=== PATIENT | male | born 1960 | race Caucasian/White ===

== ENCOUNTER 2021-11-25 07:52 | Day surgery (SDC) | payer OTHER ==
[~2021-11-25] VITALS: Ht 180.3 cm; Wt 111.7 kg
[2021-11-25] VITALS (16 sets, daily range): BP systolic 131–175; BP diastolic 85–163
[2021-11-25] MEDS ORDERED: fentaNYL/PF 50MCG/1 ML 2ML syringe IV ONE (08:15)
[2021-11-25] MEDS ORDERED: MIDAZolam 1mg/ml 10ml vial IV ONE (08:15)
[2021-11-25] MEDS ORDERED: normal saline 1000ml 1,000 ML IV SCH (08:15)
[2021-11-25] MEDS ORDERED: glycopyrrolate 0.2mg/ml inj IV ONE (08:20)
[2021-11-25] MEDS ORDERED: AMLO2.5T2 PO (08:23)
[2021-11-25] MEDS ORDERED: HYDR-3973 PO (08:23)
[2021-11-25] MEDS ORDERED: FLO0.4C PO (08:23)
[2021-11-25] MEDS ORDERED: APIX5TAB3 PO (08:23)
[2021-11-25 09:03] LABS: BASOPHILS % (AUTO) 0.8 % (0-1); EOSINOPHILS # (AUTO) 0.2 X10'3 (0-0.9); EOSINOPHILS % (AUTO) 3.9 % (0-6); HEMATOCRIT 43.4 % (42.0-52.0); HEMOGLOBIN 14.8 g/dl (14.0-17.9); LYMPHOCYTES # (AUTO) 1.6 X10'3 (1.1-4.8); MEAN CORPUSCULAR HEMOGLOBIN 30.9 PG (27.0-31.0); MEAN CORPUSCULAR VOLUME 90.7 FL (78-98); MEAN PLATELET VOLUME 7.8 FL (7.4-10.4); MONOCYTES # (AUTO) 0.4 X10'3 (0-0.9); MONOCYTES % (AUTO) 7.1 % (2-12); NEUTROPHILS # (AUTO) 3.5 X10'3 (1.8-7.7); NEUTROPHILS % (AUTO) 60.2 % (42-75); PLATELET COUNT 257 X10'3 (140-440); RED BLOOD COUNT 4.78 X10'6 (4.70-6.10); RED CELL DISTRIBUTION WIDTH 13.4 % (11.5-14.5); WHITE BLOOD COUNT 5.9 X10'3 (4.5-11.0)
[2021-11-25 09:09] LABS: ALBUMIN 3.8 G/DL (3.4-5.0); ANION GAP 8 (8-16); BLOOD UREA NITROGEN 21 MG/DL (7-18); BUN/CREATININE RATIO 21.2 (5.4-32.0); CALCIUM 9.3 MG/DL (8.5-10.1); CHLORIDE 106 MMOL/L (99-107); CREATININE 0.99 MG/DL (0.60-1.10); MAGNESIUM 2.3 MG/DL (1.5-2.4); SODIUM 141 MMOL/L (135-145); TOTAL CARBON DIOXIDE 26.6 MMOL/L (24-32); eGFR 77 ML/MIN
[2021-11-25 09:12] LABS: GLUCOSE 80 MG/DL (70-104); POTASSIUM 4.1 MMOL/L (3.5-5.1)
--- NOTE | 2021-11-25 12:50 | NUR ---
Phoned Dr. Alegria re: pt not taking anti-arrhythmic medication, orders received. Pt given written prescription, prescription also faxed to [facility] pharmacy. Instructed pt if they had any issues picking up medication from [facility] to call Dr. Alegria's office. Pt and verbalize understanding.
[2021-11-25] MEDS ORDERED: flecainide 50mg tablet PO STA (12:54)
== END 2021-11-25 13:10 | disposition home or self-care (01) ==
LOC: SSTAY O 07:52
PROVIDERS: ATTEND Internal Medicine Cardiovascular Disease
DX: I48.4 Atypical atrial flutter (principal); Q21.1 Atrial septal defect; I10 Essential (primary) hypertension; Z79.899 Other long term (current) drug therapy; Z98.84 Bariatric surgery status; Z98.890 Other specified postprocedural states; Z72.89 Other problems related to lifestyle; Z80.42 Family history of malignant neoplasm of prostate; Z80.1 Family history of malignant neoplasm of trachea, bronchus and lung; Z82.49 Family history of ischemic heart disease and other diseases of the circulatory system
CPT/HCPCS: 36415; 80048; 83735; 85025; 85610; 92960; 93005; 93312; 94760; 94799; J2250; J3010; J3490; J7030; A4620